=== PATIENT | female | born 1930 | race African-American/Black ===

== ENCOUNTER 2017-12-23 09:37 | Inpatient (IN) ==
[2017-12-23] MEDS ORDERED: Metoprolol Tartrate 25 MG Tablet PO SCH (10:30)
[2017-12-23] MEDS ORDERED: Chlorhexidine Gluconate 2% 1 Pack (2 Cloths) TOPICAL SCH (10:30)
[2017-12-23] MEDS ORDERED: Sodium Chlor 0.9% Inj 500 ML IV.SIG SCH (11:00)
[2017-12-23] MEDS ORDERED: Lidocaine PF 1% Inj 5 ML Syringe INFILTRATN ONE (12:00)
[2017-12-23] MEDS ORDERED: Glycopyrrolate Inj 1 MG/5 ML Syringe IV.PUSH ONE (12:00)
[2017-12-23] MEDS ORDERED: Neostigmine Inj 5 MG/5 ML Syringe IV.PUSH ONE (12:00)
[2017-12-23] MEDS ORDERED: Phenylephrine/NS 1000 MCG/10ML Syringe IV.PUSH ONE (12:00)
[2017-12-23] MEDS ORDERED: Lidocaine 1%/Epinephrine 1:100,000 Inj 20 ML Vial ONE (14:33)
[2017-12-23] MEDS ORDERED: Gelatin Size 100 Topical Foam ONE (14:34)
[2017-12-23] MEDS ORDERED: Thrombin Topical Soln 5,000 UNIT Vial TOPICAL ONE (14:34)
[2017-12-23] MEDS ORDERED: Bisacodyl 10 MG Supp RECTAL PRN (15:39)
[2017-12-23] MEDS ORDERED: Morphine Inj 4 MG/ML Vial ONE (17:56)
[2017-12-23] MEDS ORDERED: CROMOLYN 4% EACH EYE SCH (18:00)
[2017-12-23 19:07] LABS: Total Protein,CSF 37.6 mg/dL (15.0-45.0)
[2017-12-23 20:01] LABS: RBC on Tube 1 5360 /mm3
[2017-12-23 20:08] LABS: Lymphocytes, CSF 86 %; Neutrophils,CSF 14 %
--- NOTE | 2017-12-23 20:20 | CT ---
EXAM DATE: 12/23/2017 7:59 PM EDT AGE/SEX: 87 years / Female INDICATIONS: Post op; revision of INDUSTRIAL ECOLOGIST shunt. CLINICAL DATA: This is the patient's initial encounter. Patient reports that signs and symptoms have been present for 1 day and indicates a pain score of Nonresponsive. MEDICAL/SURGICAL HISTORY: Gastroesophageal reflux disease. Sickle Cell disease. Esophageal strictu re, Cerebral cyst Hysterectomy. RADIATION DOSE: 56.35 CTDI (mGy) COMPARISON: PCI, CT BRAIN W/O CONTRAST, 10/13/2017. . TECHNIQUE: CT of the head without contrast. Using automated exposure control and adjustment of the mA and/or kV according to patient size, radiation dose was kept as low as reasonably achievable to ob tain optimal diagnostic quality images. DICOM format image data is available electronically for revi ew and comparison. FINDINGS: Interval revision of ventriculoperitoneal shunt catheter. The catheter enters via a left frontal appr oach and now extends into the third ventricle. There is no hydrocephalus. There is new acute high den sity hemorrhage along the left frontal and parietal convexities and there is mild surrounding edema. Small amount gas is noted in the anterior left subdural space is well. There is no mass effect or mid line shift. The posterior fossa and brainstem are unremarkable. CONCLUSION: 1. New high density subarachnoid hemorrhage along the left frontal and parietal convexities adjacent to the ventriculoperitoneal shunt catheter. 2. The shunt catheter tip is in the third ventricle with no evidence of hydrocephalus. . Electronically signed by: Bg Lange MD 12/23/2017 8:18 PM EDT
[2017-12-23] MEDS ORDERED: Non-Formulary Drug (Omega 3-Dha-Epa-Fish Oil [Fish Oil] 1 CAP) PO SCH (21:00)
--- NOTE | 2017-12-23 21:21 | P.OP ---
- Preoperative Diagnosis (1) NPH (normal pressure hydrocephalus) - Postoperative Diagnosis (1) NPH (normal pressure hydrocephalus) Date of procedure: 12/23/17 Procedure: Revision of ventriculoperitoneal shunt Anesthesia: [facility] Surgeon: Marques Denton MD Fence Erector: Medina Trevino Pathology: other (CSF) Operation and Findings: INTRAOPERATIVE FINDINGS:~ Clear cerebrospinal fluid with an opening pressure of 120 mm of water. INDICATIONS FOR PROCEDURE: Ms Jeffries is a 87 year old female with history of normal pressure hydrocephalus who presented with progressive gait imbalance and short term memory loss. 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 Her condition was getting progressively worse. A lumbar drain and cerebrospinal fluid drainage resulted on significant improvement in her symptoms. A revision of the ventriculoperitoneal shunt was indicated The [id number] details of the procedure, its indications, alternatives, risks , and potential complications of the surgery were fully discussed with the patient and his family. They fully understood. All their questions were answered. No guarantees were given. They voiced requesting the surgery and signed informed consent.They were offered the alternative of continuing nonsurgical treatment. DETAILS OF THE SURGICAL PROCEDURE:~ After the induction of general anesthesia, endotracheal intubation was performed. A Rubin catheter, bilateral COLLEEN hose and sequential compression devices were placed and kept throughout the procedure. The patient was positioned supine on a 30-80 table with the head over a gel doughnut. All pressure points were carefully padded with eggcrate mattress. The left frontotemporal parietal area was shaved prepped and draped in the usual sterile fashion, as well as the neck, chest and abdomen. A small incision was made in the left frontal area adjacent to her shunt and a self-retaining retractor was placed in the incision. AThe ventricular catheter was disconnected from the valve and no CSF flow was obtained. Using a mannometer , flow through the valve was assessed and the valve was obstructed. The valve was then disconnected from the peritoneal catheter and flow through the peritoneal catether was assessed. An excellent flow was demoonstrated through the peritoneal catheter. A IntroFly programmable valve has calibrated at a pressure of 120 mmHg and flushed according to the granulator machine operator's instructions. The valve was secured to the proximal end of the peritoneal catheter using a 2-0 silk. Then, a ventricular catheter was advanced into the ventricular system. At a depth of 70mm a good flow of cerebrospinal fluid was obtained.~ The catheter was connected to the valve and the connection secured with a 2-0 silk. Cerebrospinal fluid was noted to drip through the distal end of the peritoneal catheter. The skin incision was closed using interrupted 3-0 Vicryl for the galea and sree to the skin. At the end of the procedure, the sponge, needle and instrument counts were all correct. The estimated blood was less than 50 cc. No blood transfusion was given. No intraoperative complications occurred. The patient received preoperative prophylactic antibiotics. The patient was then extubated and transferred to the recovery room in stable condition.
[2017-12-23] MEDS: Senna/Docusate Sodium 8.6/50 MG Tablet PO SCH (22:17)
[2017-12-23] MEDS: amLODIPine 5 MG Tablet PO SCH (22:17)
[2017-12-24] MEDS ORDERED: ceFAZolin 2 GM Premix Inj 2 GM/50 ML PIGGYBACK IV.SIG SCH
[2017-12-24] MEDS: ceFAZolin Inj 2,000 MG in Sodium Chlor 0.9% Inj 100 ML IV.SIG SCH ×3 (00:21→16:21)
[2017-12-24] MEDS: Ascorbic Acid 500 MG Tablet PO SCH (08:19)
[2017-12-24] MEDS: Senna/Docusate Sodium 8.6/50 MG Tablet PO SCH ×2 (08:20→20:53)
--- NOTE | 2017-12-24 09:13 | P.CONIM ---
History of Present Illness Requesting Physician: Marques Denton Reason for Consult: post operative medical management Primary Care Provider: Sharad Madrid Family Provider: Sharad Madrid History of Present Illness: This is an 87-year-old female patient with a past medical history which includes carotid artery stenosis, cerebellar cyst, chronic kidney disease stage III, degenerative disc disease, GERD, hypertension, sciatica, and normal pressure hydrocephalus. Patient is status post revision of FRENCH BINDING FOLDER shunt [address] Denton. We have been consulted for assistance with postoperative medical management. Patient resting in bed with family member at bedside. Patient only complaint at this time is sore throat. Patient denies fever, chills, N/V, SOB or chest pain. Past medical history carotid artery stenosis, cerebellar cyst, chronic kidney disease stage III, degenerative disc disease, GERD, hypertension, sciatica, and normal pressure hydrocephalus Past surgical history Arthroscopic right knee, percutaneous needle biopsy of the breast, FRENCH BINDING FOLDER shunt placement, cataract surgery, colonoscopy, diagnostic EGD, surgery on the elbow, neck surgery, neuroplastic decompression of medial nerve, tonsillectomy and adenoidectomy, vaginal hysterectomy and Social history Lives independently Denies EtOH use Denies tobacco use now in the past Family history Hypertension, arthritis, diabetes mellitus and heart disease Review of Systems All other systems reviewed negative except as stated in HPI PMFSH - History History Provided By: Patient - Medical History Medical History: Medical History (Last Reviewed 12/26/17 @ 07:38 by Kiesha Grider) Anxiety Cerebral cyst GERD (gastroesophageal reflux disease) History of esophageal stricture Hx of hysterectomy Hypertension Memory changes Numbness and tingling in both hands Numbness and tingling of both feet Right elbow pain Shoulder pain, bilateral Sickle cell anemia Urinary frequency Wears dentures Wears glasses - Surgical History Surgical History: Surgical History (Last Reviewed 12/26/17 @ 07:38 by Kiesha Grider) History of carpal tunnel surgery of left wrist History of carpal tunnel surgery of right wrist History of total bilateral knee replacement (TKR) Hx of breast biopsy Hx of cataract removal with insertion of prosthetic lens Hx of tonsillectomy Ventriculo-peritoneal shunt status - Tobacco History Second Hand Smoke Exposure: No Smoking Status: Never smoker - Alcohol History How Often Do You Have a Drink Containing Alcohol: Never - Substance Use History Substance History: No History of Abuse - Travel History Recent Travel in the [facility] Within the Last 8 Weeks: No Recent Travel Out of the Country Within the Last 8 Weeks: No Medications and Allergies Allergies Allergy/AdvReac Type Severity Reaction Status Date / Time albuterol Allergy Severe SEIZURES Verified 12/23/17 10:51 aspirin Allergy Severe STOMACH Verified 12/23/17 10:51 PAIN clarithromycin Allergy Unknown DO NOT Verified 12/23/17 10:51 RECALL fentanyl Allergy Unknown CANNOT Verified 12/23/17 10:51 RECALL prednisone Allergy Unknown does not Verified 12/23/17 11:52 recall Home Medications Medication Instructions Recorded Confirmed Type amlodipine 5 mg PO HS 12/22/17 12/23/17 History ascorbic acid (vitamin C) 250 mg PO DAILY 12/22/17 12/23/17 History cromolyn 1 drp OPHTHALMIC (EYE) QID 12/22/17 12/23/17 History ergocalciferol (vitamin D2) 1 cap PO WEEKLY 12/22/17 12/23/17 History [Vitamin D2] hydrochlorothiazide 12.5 mg PO DAILY 12/22/17 12/23/17 History omega 6-ebe-lpt-fish oil [Fish Oil] 1 cap PO BID 12/22/17 12/23/17 History calcium-mag oxide-vitamin D3 PO DAILY 12/23/17 History turmeric (bulk) [Curcumin] MISCELLANEOUS BID 12/23/17 History Active Medications: Active Medications Hydrocodone Bitart/Acetaminophen ([place] 10/325) 1 tab PO Q4H PRN PRN Reason: Pain Scale 1 To 5 Al Hydroxide/Mg Hydroxide (Milk Of Magnnoe Liq) 30 ml PO Q12H PRN PRN Reason: Mild Constipation Amlodipine Besylate (Norvasc) 5 mg PO [facility] Ascorbic Acid (Vitamin C) 250 mg PO DAILY [facility] Last Admin: 12/24/17 08:19 Dose: 250 mg Bisacodyl (Dulcolax Supp) 10 mg RECTAL DAILY PRN PRN Reason: SEVERE CONSITIPATION Chlorhexidine Gluconate (Chlorhexidine 2% Cloth) 3 pack TOPICAL INBOUND CUSTOMER SERVICE AGENT [facility] Stop: 12/26/17 10:25 Last Admin: 12/23/17 10:30 Dose: 3 pack Ergocalciferol (Vitamind2) 50,000 unit PO WEEKLY [facility] Hydrochlorothiazide (Microzide) 12.5 mg PO DAILY [facility] Last Admin: 12/24/17 08:20 Dose: 12.5 mg Lactated Ringer's (Lr 1000 Ml Inj) 1,000 mls @ 30 mls/hr IV.SIG .Q24H [facility] Stop: 12/26/17 10:25 Last Admin: 12/23/17 11:00 Dose: 30 mls/hr Sodium Chloride (Ns Inj) 500 mls @ 30 mls/hr IV.SIG .Q10H [facility] Stop: 12/26/17 10:25 Cefazolin Sodium 2,000 mg/ (Sodium Chloride) 120 mls @ 240 mls/hr IV.SIG INBOUND CUSTOMER SERVICE AGENT [facility] Stop: 12/26/17 10:59 Potassium Chloride/Sodium Chloride (Ns + Kcl 20 Meq Inj) 1,000 mls @ 100 mls/ hr IV.CONT .Q10H [facility] Last Admin: 12/24/17 01:12 Dose: 100 mls/hr Cefazolin Sodium 2,000 mg/ (Sodium Chloride) 120 mls @ 240 mls/hr IV.SIG Q8H [facility] Stop: 12/24/17 16:29 Last Admin: 12/24/17 08:20 Dose: 240 mls/hr Lactulose (Lactulose Liq) 30 ml PO DAILY PRN PRN Reason: SEVERE CONSITIPATION Metoprolol Tartrate (Lopressor) 25 mg PO INBOUND CUSTOMER SERVICE AGENT [facility] Stop: 12/26/17 10:25 Last Admin: 12/23/17 11:22 Dose: Not Given Miscellaneous Information ([facility]) 1 each OTHER UNSCH PRN PRN Reason: SEE LABEL COMMENTS Stop: 12/24/17 19:27 Patient Own Medication - ( Cromolyn [Cromolyn] 4% Opth. Soln.) 1 each EACH EYE QID [facility] Povidone Iodine (Betadine 5% Antisepsis Kit) 1 applicatio EACH NARE INBOUND CUSTOMER SERVICE AGENT [facility] Stop: 12/26/17 10:25 Last Admin: 12/23/17 11:22 Dose: Not Given Senna/Docusate Sodium (Ijeoma-Colace) 1 tab PO BID [facility] Last Admin: 12/24/17 08:20 Dose: 1 tab Sennosides (Senokot) 17.2 mg PO Q12H PRN PRN Reason: Moderate Constipation Exam Vital signs: Vital Signs 12/23/17 11:11 12/23/17 17:43 08/17/18 18:00 Temperature 98.1 F 96.7 F L Pulse Rate 68 62 62 Respiratory Rate 20 20 20 Blood Pressure 151/76 H 135/64 129/68 Pulse Oximetry 97 97 12/23/17 18:15 12/23/17 18:20 12/23/17 18:30 Temperature Pulse Rate 55 L 56 L Respiratory Rate 16 16 16 Blood Pressure 137/64 151/70 H Pulse Oximetry 100 94 L 12/23/17 18:45 12/23/17 19:00 12/23/17 19:15 Temperature Pulse Rate 56 L 55 L 54 L Respiratory Rate 16 17 16 Blood Pressure 152/73 H 151/78 H 164/74 H Pulse Oximetry 95 97 97 12/23/17 19:30 12/23/17 19:45 12/23/17 20:00 Temperature Pulse Rate 52 L 54 L 66 Respiratory Rate 16 20 23 Blood Pressure 153/82 H 154/79 H 173/81 H Pulse Oximetry 98 96 100 12/23/17 20:15 12/23/17 20:30 12/23/17 20:45 Temperature Pulse Rate 58 L 56 L 57 L Respiratory Rate 17 16 15 Blood Pressure 169/77 H 151/62 H 149/71 H Pulse Oximetry 97 97 97 12/23/17 21:00 12/24/17 00:00 12/24/17 04:00 Temperature 97.6 F 98.7 F 98.7 F Pulse Rate 57 L 62 62 Respiratory Rate 15 16 16 Blood Pressure 137/66 179/77 H 167/72 H Pulse Oximetry 98 98 98 12/24/17 08:00 12/24/17 08:52 Temperature 98.3 F Pulse Rate 81 Respiratory Rate 19 Blood Pressure 160/76 H Pulse Oximetry 95 96 Intake & Output 12/23/17 12/24/17 12/24/17 18:59 06:59 18:59 Intake Total 1000 / 1000 1370 / 1370 Output Total 20 / 20 3670 / 3670 Balance 980 / 980 -2300 / -2300 Weight 66 kg 67 kg Intake: IV 1120 / 1120 NS + KCl 20 mEq Inj 1,000 ML @ 1000 / 1000 100 mls/hr IV.CONT .Q10H [facility] Rx #:[id number] Ancef Inj 2,000 MG In NS Inj 120 / 120 100 ML @ 240 mls/hr IV.SIG Q8H [facility] Rx#:[id number] Oral 50 / 50 Anesthesia Amount 1000 / 1000 200 / 200 Output: Estimated Blood Loss / 20 20 / Urine Amount (Catheter) 3649 Indwelling Urethral Catheter 3649 Other: # Voids 1 1 Weight On Admission 66 kg Narrative: GENERAL: This is an elderly 87-year-old female patient with dressing present on head CDI, in no apparent distress. CARDIOVASCULAR: Regular rate and rhythm RESPIRATORY: Clear to auscultation. Breath sounds equal bilaterally. GASTROINTESTINAL: Abdomen soft, non-tender, nondistended. Normal active bowel sounds MUSCULOSKELETAL: Extremities without clubbing, cyanosis, or edema. NEURO: Alert & Oriented x4 to person, place, time, situation. Moves all ext x4 Results - Labs CBC & Chem 7: 12/25/17 04:20 12/25/17 04:20 Labs: Laboratory Results - last 24 hr 12/23/17 12/23/17 12/23/17 10:57 17:00 17:00 CSF Volume (1) 3.5 CSF Supernat Color (1) Clear CSF Gross Blood (1) 1+ A CSF WBC (1) 5 CSF RBC (1) 5360 H CSF Neutrophils % 14 CSF Lymphocytes % 86 CSF Glucose 50 CSF Total Protein 37.6 Nasal Screen MRSA (PCR) Negative Staph aureus (PCR) Negative - Imaging Impressions Head CT 12/23/17 00:00 CONCLUSION: 1. New high density subarachnoid hemorrhage along the left frontal and parietal convexities adjacent to the ventriculoperitoneal shunt catheter. 2. The shunt catheter tip is in the third ventricle with no evidence of hydrocephalus. . Assessment and Plan - Assessment (1) NPH (normal pressure hydrocephalus) Code(s): G91.2 - (Idiopathic) normal pressure hydrocephalus Status: Acute Plan: This is an 87-year-old female patient with a past medical history which includes carotid artery stenosis, chronic kidney disease stage III, degenerative disc disease, GERD, hypertension, sciatica, and normal pressure hydrocephalus. Patient is status post revision of FRENCH BINDING FOLDER shunt on 12/23/[address] Denton. We have been consulted for assistance with postoperative medical management. Normal pressure hydrocephalus status post revision of FRENCH BINDING FOLDER shunt on 12/23/[address] Denton. Hypertension Continue patient's home amlodipine 5 mg p.o. nightly and hydrochlorothiazide 12.5 mg p.o. daily add Vasotec as needed Sore throat Chloraseptic lozenges as needed DVT prophylaxis per surgery - Attending Attestation Patient examined. Assessment and plan formulated with Irma Willis PA-C. I agree with the above.
--- NOTE | 2017-12-24 15:47 | P.PNNS ---
Subjective Interval history: patient without any issues Physical Exam Vital signs: Vital Signs 12/23/17 17:43 12/23/17 18:00 12/23/17 18:15 Temperature 96.7 F L Pulse Rate 62 62 55 L Respiratory Rate 20 20 16 Blood Pressure 135/64 129/68 137/64 Pulse Oximetry 97 100 12/23/17 18:20 12/23/17 18:30 12/23/17 18:45 Temperature Pulse Rate 56 L 56 L Respiratory Rate 16 16 16 Blood Pressure 151/70 H 152/73 H Pulse Oximetry 94 L 95 12/23/17 19:00 12/23/17 19:15 12/23/17 19:30 Temperature Pulse Rate 55 L 54 L 52 L Respiratory Rate 17 16 16 Blood Pressure 151/78 H 164/74 H 153/82 H Pulse Oximetry 97 97 98 12/23/17 19:45 12/23/17 20:00 12/23/17 20:15 Temperature Pulse Rate 54 L 66 58 L Respiratory Rate 20 23 17 Blood Pressure 154/79 H 173/81 H 169/77 H Pulse Oximetry 96 100 97 12/23/17 20:30 12/23/17 20:45 12/23/17 21:00 Temperature 97.6 F Pulse Rate 56 L 57 L 57 L Respiratory Rate 16 15 15 Blood Pressure 151/62 H 149/71 H 137/66 Pulse Oximetry 97 97 98 12/24/17 00:00 12/24/17 04:00 12/24/17 08:00 Temperature 98.7 F 98.7 F 98.3 F Pulse Rate 62 62 81 Respiratory Rate 16 16 19 Blood Pressure 179/77 H 167/72 H 160/76 H Pulse Oximetry 98 98 95 12/24/17 08:52 12/24/17 12:00 Temperature 98.5 F Pulse Rate Respiratory Rate 24 Blood Pressure 151/67 H Pulse Oximetry 96 94 L Intake & Output 12/23/17 12/24/17 12/24/17 18:59 06:59 18:59 Intake Total 1000 / 1000 1370 / 1370 1120 / 1120 Output Total 20 / 20 3670 / 3670 Balance 980 / 980 -2300 / -2300 1120 / 1120 Weight 66 kg 67 kg Intake: IV 1120 / 1120 1120 / 1120 NS + KCl 20 mEq Inj 1,000 ML @ 1000 / 1000 1000 / 1000 100 mls/hr IV.CONT .Q10H [facility] Rx #:[id number] Ancef Inj 2,000 MG In NS Inj 120 / 120 120 / 120 100 ML @ 240 mls/hr IV.SIG Q8H [facility] Rx#:[id number] Oral 50 / 50 Anesthesia Amount 1000 / 1000 200 / 200 Output: Estimated Blood Loss 20 / 20 20 / 20 Urine Amount (Catheter) 3650 / 3650 Indwelling Urethral Catheter 3650 / 3650 Other: # Voids 1 1 Weight On Admission 66 kg Narrative: E3, awakens easily from sleep Aox self, hospital mild confusion (baseline) follows simple commands symmetric - Urinary Catheter Management Indwelling Urethral Catheter Cath placed during this visit: yes Reason for continuing: Hourly intake/output Insertion date: 12/23/17 Insertion time: 16:30 Assessment and Plan - Plan 87 yo POD 1 s/p MACHINE JOINT CUTTER shunt for NPH -transfer to floor -normalize: dc sheets, ok to be OOB with assistance -recommend PT evaluation for discharge needs -DC home tomorrow versus SNF placement pending PT evaluation
[2017-12-24] MEDS: amLODIPine 5 MG Tablet PO SCH (20:53)
[2017-12-24] MEDS: Acetaminophen 325 MG Tablet PO PRN (20:53)
[2017-12-25] MEDS: Acetaminophen 325 MG Tablet PO PRN ×4 (03:44→20:12)
[2017-12-25 05:22] LABS: Baso % (Auto) 0.4 % (0.0-2.0); Eos # (Auto) 0.1 th/mm3 (0.0-0.4); Eos % (Auto) 0.6 % (0.0-4.0); Hematocrit 43.7 % (35.0-46.0); Hemoglobin 14.6 gm/dL (11.6-15.3); Lymph % (Auto) 21.8 % (9.0-44.0); Mean Corpuscular HGB Conc 33.4 % (32.0-36.0); Mean Corpuscular Hemoglobin 29.4 pg (27.0-34.0); Mean Corpuscular Volume 88.3 fL (80.0-100.0); Mean Platelet Volume 10.3 fL (7.0-11.0); Mono # (Auto) 1.2 th/mm3 (0.0-0.9); Mono % (Auto) 13.2 % (0.0-8.0); Neut # (Auto) 5.7 th/mm3 (1.8-7.7); Platelet Count 193 th/mm3 (150-450); Red Blood Count 4.95 mil/mm3 (4.00-5.30); White Blood Count 8.9 th/mm3 (4.0-11.0)
[2017-12-25 05:46] LABS: Calcium 8.7 mg/dL (8.5-10.1); Carbon Dioxide 28.1 meq/L (21.0-32.0); Potassium 3.5 meq/L (3.5-5.1)
[2017-12-25] MEDS: Ascorbic Acid 500 MG Tablet PO SCH (08:40)
[2017-12-25] MEDS: Senna/Docusate Sodium 8.6/50 MG Tablet PO SCH ×2 (08:40→20:11)
--- NOTE | 2017-12-25 14:30 | P.PNNS ---
Subjective Interval history: patient without any issues Physical Exam Vital signs: Vital Signs 12/24/17 16:00 12/24/17 20:00 12/25/17 00:00 Temperature 98.7 F 98.1 F 98.2 F Pulse Rate 69 66 63 Respiratory Rate 26 H 21 20 Blood Pressure 144/64 H 138/63 121/60 Pulse Oximetry 96 97 96 12/25/17 04:00 12/25/17 08:00 12/25/17 12:00 Temperature 97.8 F 97.8 F 97.8 F Pulse Rate 60 55 L 63 Respiratory Rate 20 20 21 Blood Pressure 182/81 H 125/61 115/59 L Pulse Oximetry 99 94 L 91 L Intake & Output 12/24/17 12/25/17 12/25/17 18:59 06:59 18:59 Intake Total 2040 / 2040 240 / 240 Output Total 1800 / 1800 250 / 250 Balance 240 / 240 -10 / -10 Weight 67.8 kg Intake: IV 1640 / 1640 NS + KCl 20 mEq Inj 1,000 ML @ 1400 / 1400 100 mls/hr IV.CONT .Q10H [facility] Rx #:[id number] Ancef Inj 2,000 MG In NS Inj 240 / 240 100 ML @ 240 mls/hr IV.SIG Q8H [facility] Rx#:[id number] Oral 400 / 400 240 / 240 Output: Urine 250 / 250 Urine Amount (Catheter) 1800 / 1800 Indwelling Urethral Catheter 1800 / 1800 Narrative: E4,bright Aox self, hospital mild confusion (baseline) follows simple commands symmetric incision: sree, clean/dry/intact - Urinary Catheter Management Indwelling Urethral Catheter Cath placed during this visit: yes, but has since been removed by the nurse Reason for continuing: Decision to DC catheter Insertion date: 12/23/17 Insertion time: 16:30 Removal date: 12/24/17 Removal time: 18:15 Assessment and Plan - Plan 87 yo POD 2 s/p INDUSTRIAL DESIGN INTERN shunt revision -ok to be OOB -regular diet -physical therapy recommendations -likely inpatient rehab versus SNF placement (ready for discharge pending placement)
[2017-12-25] MEDS: amLODIPine 5 MG Tablet PO SCH (20:11)
[2017-12-26] MEDS: Ascorbic Acid 500 MG Tablet PO SCH (08:03)
[2017-12-26] MEDS: Senna/Docusate Sodium 8.6/50 MG Tablet PO SCH (08:03)
--- NOTE | 2017-12-26 10:57 | P.DS ---
<Marques Denton - Last Filed: 12/28/17 12:22> Date of admission: 12/23/17 09:37 Primary care physician: Sharad Madrid DS: Summary - Time Spent with Patient Total time spent providing and/or coordinating discharge services: Results - Impressions ITS Impressions Head CT 12/23/17 00:00 CONCLUSION: 1. New high density subarachnoid hemorrhage along the left frontal and parietal convexities adjacent to the ventriculoperitoneal shunt catheter. 2. The shunt catheter tip is in the third ventricle with no evidence of hydrocephalus. . <ElliottJhoana - Last Filed: 12/28/17 17:01> Date of admission: 12/23/17 09:37 Primary care physician: Sharad Madrid Brief History from admission: Ms Jeffries is a 87 year old female with history of normal pressure hydrocephalus who presented with progressive gait imbalance and short term memory loss. 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 Her condition was getting progressively worse. A lumbar drain and cerebrospinal fluid drainage resulted on significant improvement in her symptoms. A revision of the ventriculoperitoneal shunt was indicated DS: Summary Hospital Course: Ms. Jeffries underwent revision of ventriculoperitoneal shunt on 12/23/17. She was discharged to SNF in stable conditions. - Time Spent with Patient Total time spent providing and/or coordinating discharge services: Less than 30 minutes Exam Vital signs: Vital Signs 12/25/17 12:00 12/25/17 16:00 12/25/17 20:00 Temperature 97.8 F 97.8 F 98.3 F Pulse Rate 63 56 L 66 Respiratory Rate 21 24 23 Blood Pressure 115/59 L 142/66 H 145/76 H Pulse Oximetry 91 L 93 L 95 12/26/17 00:00 12/26/17 04:00 12/26/17 08:00 Temperature 98.0 F 98.2 F 98.2 F Pulse Rate 62 64 67 Respiratory Rate 20 20 27 H Blood Pressure 119/56 L 155/72 H 145/70 H Pulse Oximetry 92 L 92 L 97 Intake & Output 12/25/17 12/26/17 12/26/17 18:59 06:59 18:59 Intake Total 750 / 750 240 / 240 Output Total 500 / 500 700 / 700 Balance 250 / 250 -460 / -460 Weight 68.5 kg Intake: Oral 750 / 750 240 / 240 Output: Urine 500 / 500 700 / 700 Other: # Voids 2 Results Procedures completed during hospitalization: Revision of ventriculoperitoneal shunt 12/23/17 - Impressions ITS Impressions Head CT 12/23/17 00:00 CONCLUSION: 1. New high density subarachnoid hemorrhage along the left frontal and parietal convexities adjacent to the ventriculoperitoneal shunt catheter. 2. The shunt catheter tip is in the third ventricle with no evidence of hydrocephalus. . Discharge Plan - Discharge Order Discharge Orders: Discharge Order (Routine); Ordered 12/26/17 Ordered By: Jhoana Gallagher - Physicians Team Primary Care Provider: Sharad Madrid Attending Provider: Marques Denton Other Providers: Emanuel Telles DO ; Pat Glass - Rxs /Orders / Referrals /Forms Prescriptions: Continue amlodipine 5 mg Tablet 5 mg PO HS ascorbic acid (vitamin C) 250 mg Tablet 250 mg PO DAILY calcium-mag oxide-vitamin D3 PO DAILY cromolyn 4 % Drops 1 drp OPHTHALMIC (EYE) QID ergocalciferol (vitamin D2) [Vitamin D2] 50,000 unit Capsule 1 cap PO WEEKLY hydrochlorothiazide 12.5 mg Tablet 12.5 mg PO DAILY omega 6-zon-mie-fish oil [Fish Oil] 1,000 mg (120 mg-180 mg) Capsule 1 cap PO BID turmeric (bulk) [Curcumin] 95 % Powder miscellaneous BID Referrals: Sharad Madrid MD [Primary Care Provider] - See Instructions Pat Glass [Agency] - See Instructions - Discharge Instructions Patient Printed Instructions: Hydrocephalus (DC), Ventriculoperitoneal Shunt Placement for Hydrocephalus in Adults (DC)
== END 2017-12-26 14:10 ==
LOC: HSDI 09:37 → N03 21:46
PROVIDERS: ADMIT Neurological Surgery; ATTEND Neurological Surgery

== ENCOUNTER 2018-01-23 21:25 | Inpatient (IN) ==
--- NOTE | 2018-01-23 22:16 | ED ---
HPI General Chief complaint: Neuro Symptoms/Deficit Stated complaint: Medical Time Seen by Provider: 01/23/18 21:32 History of Present Illness HPI narrative: Patient is an 87-year-old female presents emergency department for evaluation of altered mental status. Patient was a transfer accepted by Dr. Denton. Has a history of a shunt revision recently for reasons unknown. Patient was seen at outside facility had CAT scan that showed that she had abnormal fluid level density in the left parietal lobe consistent with either a CSF-patel or ischemia. Patient is alert and awake and oriented on arrival she is having some difficulty finding words and cannot tell me who did her surgery(it was in fact Dr. Denton) when it was or for what reason. This limits her history somewhat peer Related Data Home Medications Medication Instructions Recorded Confirmed amlodipine 5 mg PO HS 12/22/17 12/23/17 ascorbic acid (vitamin C) 250 mg PO DAILY 12/22/17 12/23/17 cromolyn 1 drp OPHTHALMIC (EYE) QID 12/22/17 12/23/17 ergocalciferol (vitamin D2) 1 cap PO WEEKLY 12/22/17 12/23/17 [Vitamin D2] hydrochlorothiazide 12.5 mg PO DAILY 12/22/17 12/23/17 omega [id number]-fish oil [Fish Oil] 1 cap PO BID 12/22/17 12/23/17 calcium-mag oxide-vitamin D3 PO DAILY 12/23/17 turmeric (bulk) [Curcumin] MISCELLANEOUS BID 12/23/17 Allergies Allergy/AdvReac Type Severity Reaction Status Date / Time albuterol Allergy Severe SEIZURES Verified 12/23/17 10:51 aspirin Allergy Severe STOMACH Verified 12/23/17 10:51 PAIN clarithromycin Allergy Unknown DO NOT Verified 12/23/17 10:51 RECALL fentanyl Allergy Unknown CANNOT Verified 12/23/17 10:51 RECALL prednisone Allergy Unknown does not Verified 12/23/17 11:52 recall Review of Systems ROS: all other systems reviewed are negative PMFSH Social History Social History Substance History: No History of Abuse Second Hand Smoke Exposure: No Smoking Status: Never smoker How Often Do You Have a Drink Containing Alcohol: Never Recent Travel in [facility] within the Last 8 Weeks: No Recent Out of Country Travel within the Last 8 Weeks: No Exam Narrative Exam Narrative: GENERAL: Well-developed well-nourished, no obvious distress, appears younger than stated age. SKIN: Focused skin assessment warm/dry. HEAD: Atraumatic. Normocephalic. EYES: Pupils equal and round. No scleral icterus. No injection or drainage. ENT: No nasal bleeding or discharge. Mucous membranes pink and moist. NECK: Trachea midline. No JVD. CARDIOVASCULAR: Regular rate and rhythm. No murmur appreciated. RESPIRATORY: No accessory muscle use. Clear to auscultation. Breath sounds equal bilaterally. GASTROINTESTINAL: Abdomen soft, non-tender, nondistended. Hepatic and splenic margins not palpable. MUSCULOSKELETAL: No obvious deformities. No clubbing. No cyanosis. No edema. NEUROLOGICAL: Awake and alert. No obvious cranial nerve deficits. Motor grossly within normal limits. Normal speech. Patient is having some difficulty finding words, otherwise 5 out of 5 strength in all 4 extremities, cranial nerves II through XII grossly intact and nonfocal. PSYCHIATRIC: Appropriate mood and affect; insight and judgment normal. Course Initial Documented Vital Signs Temperature 97.8 F 01/23/18 21:31 Pulse Rate 64 01/23/18 21:31 Respiratory Rate 14 01/23/18 21:31 Blood Pressure 182/85 H 01/23/18 21:31 Pulse Oximetry 95 01/23/18 21:31 Last Documented Vital Signs Temperature 97.8 F 01/23/18 21:37 Pulse Rate 65 01/23/18 23:29 Respiratory Rate 22 01/23/18 23:29 Blood Pressure 155/84 H 01/23/18 23:29 Pulse Oximetry 95 01/23/18 23:29 Medical Decision Making MDM Narrative Medical decision making narrative: Patient was roomed in the emergency department, discussed with Dr. Denton who would like to get an MRI to differentiate between the 2 leading diagnoses listed above. Patient is alert and awake and oriented protecting her own airway. He requested the patient be admitted to [facility]. Patient discussed with Dr. Zaman who is agreeable. Patient did not receive any medications prior to transfer, none were recommended by Dr. Denton nor myself. Patient stable. Did review the CT scan from outside facility did show some hypodense lesion in the left parietal lobe. Basic labs were sent at outside facility were also included reviewed by me briefly and did not show any significant abnormality. Shunt series was also reviewed and showed no kink or disruption of the shunt tubing. Medical Screen Exam Complete: Yes Emergency Medical Condition: Yes Differential Diagnosis Differential Diagnosis: Stroke, CSF leak, shunt malfunction. Discharge Plan Discharge Disposition Patient Disposition: 30 Still Patient Discharge Details Diagnosis: Brain lesion Physicians Team ED Provider: Royer Gupta Primary Care Provider: Sharad Madrid Attending Provider: Bobo Zaman Other Providers: Marques Denton Discharge Interventions Interventions: Vital Signs Last Done: 01/23/18 23:29 Status ED Status: Admitted Patient
[2018-01-24] MEDS ORDERED: Bisacodyl 10 MG Supp RECTAL PRN (00:10)
[2018-01-24] MEDS ORDERED: Acetaminophen 325 MG Tablet PO PRN (00:10)
[2018-01-24] MEDS: Heparin - SQ 10,000 UNITS/ML Vial SQ SCH ×2 (00:49→08:28)
[2018-01-24 00:57] LABS: Baso % (Auto) 0.3 % (0.0-2.0); Eos # (Auto) 0.3 th/mm3 (0.0-0.4); Eos % (Auto) 5.9 % (0.0-4.0); Hematocrit 42.7 % (35.0-46.0); Lymph # (Auto) 2.5 th/mm3 (1.0-4.8); Lymph % (Auto) 51.6 % (9.0-44.0); Mean Corpuscular HGB Conc 32.8 % (32.0-36.0); Mean Corpuscular Hemoglobin 28.8 pg (27.0-34.0); Mean Corpuscular Volume 87.8 fL (80.0-100.0); Mean Platelet Volume 9.8 fL (7.0-11.0); Mono # (Auto) 0.4 th/mm3 (0.0-0.9); Neut # (Auto) 1.6 th/mm3 (1.8-7.7); Neut % (Auto) 33.2 % (16.0-70.0); Platelet Count 184 th/mm3 (150-450); Red Blood Count 4.86 mil/mm3 (4.00-5.30); Red Cell Distribution Width 14.2 % (11.6-17.2); White Blood Count 4.8 th/mm3 (4.0-11.0)
[2018-01-24 01:06] LABS: Activated Partial Thrombo Time 27.1 sec (24.3-30.1); INR 1.1 Ratio
[2018-01-24 01:17] LABS: Phosphorus 3.3 mg/dL (2.5-4.9)
[2018-01-24 01:22] LABS: Magnesium 2.4 mg/dL (1.5-2.5)
[2018-01-24] MEDS: Sod Chloride 0.9% Inj 1,000 ML IV.CONT SCH ×2 (01:45→18:13)
[2018-01-24] MEDS: Chlorhexidine Gluconate 2% 1 Pack (2 Cloths) TOPICAL SCH (03:35)
[2018-01-24] MEDS ORDERED: Chlorhexidine Gluconate 2% 1 Pack (2 Cloths) TOPICAL PRN (04:00)
[2018-01-24] MEDS ORDERED: Non-Formulary Drug (Omega 3-Dha-Epa-Fish Oil [Fish Oil] 1 CAP) PO SCH (09:00)
[2018-01-24] MEDS ORDERED: CROMOLYN 4% EACH EYE SCH (09:00)
[2018-01-24] MEDS ORDERED: CROMOLYN EACH EYE SCH (09:00)
[2018-01-24] MEDS ORDERED: Non-Formulary Drug (Hydrochlorothiazide [Hydrochlorothiazide] 12.5 MG) PO SCH (09:00)
[2018-01-24] MEDS ORDERED: ASCORBIC ACID 250 MG PO SCH (09:00)
[2018-01-24] MEDS: Senna/Docusate Sodium 8.6/50 MG Tablet PO SCH ×2 (09:23→21:17)
[2018-01-24] MEDS ORDERED: Gadobutrol PF 7.5 MMOL/7.5 ML Vial (for RAD) IV.SIG ONE (10:30)
[2018-01-24] MEDS: Ascorbic Acid 500 MG Tablet PO SCH (12:23)
[2018-01-24] MEDS: Famotidine PF Inj 20 MG/2 ML Vial IV.PUSH SCH ×2 (12:23→21:18)
[2018-01-24] MEDS: amLODIPine 5 MG Tablet PO SCH (21:18)
[2018-01-25] MEDS: Chlorhexidine Gluconate 2% 1 Pack (2 Cloths) TOPICAL SCH (04:12)
[2018-01-25 04:31] LABS: Hemoglobin 14.4 gm/dL (11.6-15.3); Mean Corpuscular HGB Conc 33.5 % (32.0-36.0); Mean Corpuscular Hemoglobin 29.8 pg (27.0-34.0); Mean Corpuscular Volume 88.9 fL (80.0-100.0); Platelet Count 179 th/mm3 (150-450); Red Blood Count 4.84 mil/mm3 (4.00-5.30); Red Cell Distribution Width 14.2 % (11.6-17.2); White Blood Count 5.5 th/mm3 (4.0-11.0)
[2018-01-25 04:50] LABS: Alanine Aminotransferase 16 U/L (10-53); Anion Gap 6 meq/L (5-15); Aspartate Aminotransferase 18 U/L (15-37); Blood Urea Nitrogen 16 mg/dL (7-18); Calcium 8.7 mg/dL (8.5-10.1); Carbon Dioxide 28.8 meq/L (21.0-32.0); Chloride 109 meq/L (98-107); Glomerular Filtration Rate 58 mL/min (>89); Glucose,Random 83 mg/dL (74-106); Magnesium 2.2 mg/dL (1.5-2.5); Potassium 3.7 meq/L (3.5-5.1); Sodium 144 meq/L (136-145)
[2018-01-25 04:52] LABS: Alkaline Phosphatase 85 U/L (45-117); Total Protein 6.7 g/dL (6.4-8.2)
[2018-01-25] MEDS: Sod Chloride 0.9% Inj 1,000 ML IV.CONT SCH ×2 (05:41→18:47)
[2018-01-25] MEDS: Famotidine PF Inj 20 MG/2 ML Vial IV.PUSH SCH ×2 (09:50→20:21)
[2018-01-25] MEDS: Senna/Docusate Sodium 8.6/50 MG Tablet PO SCH ×2 (09:50→20:21)
[2018-01-25] MEDS: Ascorbic Acid 500 MG Tablet PO SCH (09:50)
[2018-01-25] MEDS: amLODIPine 5 MG Tablet PO SCH (20:21)
[2018-01-26] MEDS: Chlorhexidine Gluconate 2% 1 Pack (2 Cloths) TOPICAL SCH (03:10)
[2018-01-26] MEDS: Senna/Docusate Sodium 8.6/50 MG Tablet PO SCH ×2 (08:11→20:37)
[2018-01-26] MEDS: Famotidine PF Inj 20 MG/2 ML Vial IV.PUSH SCH ×2 (08:11→20:37)
[2018-01-26] MEDS: Ascorbic Acid 500 MG Tablet PO SCH (08:11)
[2018-01-26] MEDS: amLODIPine 5 MG Tablet PO SCH (20:37)
[2018-01-27] MEDS: Chlorhexidine Gluconate 2% 1 Pack (2 Cloths) TOPICAL SCH (03:40)
[2018-01-27 05:10] LABS: Hematocrit 47.5 % (35.0-46.0); Hemoglobin 15.9 gm/dL (11.6-15.3); Mean Corpuscular HGB Conc 33.4 % (32.0-36.0); Mean Corpuscular Hemoglobin 29.2 pg (27.0-34.0); Mean Corpuscular Volume 87.3 fL (80.0-100.0); Mean Platelet Volume 10.5 fL (7.0-11.0); Platelet Count 202 th/mm3 (150-450); Red Blood Count 5.44 mil/mm3 (4.00-5.30); Red Cell Distribution Width 14.5 % (11.6-17.2); White Blood Count 7.4 th/mm3 (4.0-11.0)
[2018-01-27 05:16] LABS: Prothrombin Time 10.5 sec (9.8-11.6)
[2018-01-27 05:20] LABS: Albumin 3.5 g/dL (3.4-5.0); Anion Gap 11 meq/L (5-15); Aspartate Aminotransferase 19 U/L (15-37); Calcium 8.9 mg/dL (8.5-10.1); Carbon Dioxide 27.4 meq/L (21.0-32.0); Chloride 105 meq/L (98-107); Glomerular Filtration Rate 49 mL/min (>89); Glucose,Random 81 mg/dL (74-106); Magnesium 2.1 mg/dL (1.5-2.5); Potassium 3.5 meq/L (3.5-5.1); Sodium 143 meq/L (136-145)
[2018-01-27 05:22] LABS: Alanine Aminotransferase 16 U/L (10-53); Blood Urea Nitrogen 18 mg/dL (7-18)
[2018-01-27 05:24] LABS: Alkaline Phosphatase 94 U/L (45-117); Total Protein 7.5 g/dL (6.4-8.2)
[2018-01-27] MEDS ORDERED: ceFAZolin 2 GM Premix Inj 2 GM/50 ML PIGGYBACK IV.SIG PRN (06:00)
[2018-01-27] MEDS: Famotidine PF Inj 20 MG/2 ML Vial IV.PUSH SCH (08:10)
[2018-01-27] MEDS: Senna/Docusate Sodium 8.6/50 MG Tablet PO SCH ×3 (08:10→20:50)
[2018-01-27] MEDS: Ascorbic Acid 500 MG Tablet PO SCH (08:10)
[2018-01-27] MEDS ORDERED: Lidocaine 1%/Epinephrine 1:100,000 Inj 20 ML Vial ONE (14:24)
[2018-01-27] MEDS ORDERED: Thrombin Topical Soln 5,000 UNIT Vial TOPICAL ONE (14:25)
[2018-01-27] MEDS ORDERED: Gelatin Size 100 Topical Foam ONE (14:25)
[2018-01-27] MEDS ORDERED: Bacitracin Opth Oint 3.5 GM Tube ONE (14:25)
[2018-01-27] MEDS ORDERED: Morphine Sulfate Inj 2 MG/ML Vial ONE (14:29)
[2018-01-27] MEDS ORDERED: HYDROmorphone PF Inj 2 MG/ML Vial ONE (14:30)
[2018-01-27] MEDS ORDERED: Artificial Tears Opth Oint 3.5 GM Tube ONE (14:36)
[2018-01-27] MEDS ORDERED: Glycopyrrolate Inj 1 MG/5 ML Syringe IV.PUSH ONE (14:45)
[2018-01-27] MEDS ORDERED: Lidocaine PF 1% Inj 5 ML Syringe OTHER ONE (14:45)
[2018-01-27] MEDS ORDERED: Neostigmine Inj 5 MG/5 ML Syringe IV.PUSH ONE (14:45)
[2018-01-27] MEDS ORDERED: Phenylephrine/NS 1000 MCG/10ML Syringe IV.PUSH ONE (14:45)
[2018-01-27] MEDS ORDERED: Bisacodyl 10 MG Supp RECTAL PRN (15:21)
[2018-01-27] MEDS ORDERED: Sugammadex Inj 200 MG/2 ML Vial IV.PUSH ONE (15:57)
[2018-01-27] MEDS: Sod Chloride 0.9% Inj 1,000 ML IV.CONT SCH ×2 (17:29→20:45)
[2018-01-27] MEDS ORDERED: Morphine Inj 4 MG/ML Vial ONE (17:43)
[2018-01-27] MEDS: levETIRAcetam 500 MG Tablet PO SCH (20:49)
[2018-01-27] MEDS: amLODIPine 5 MG Tablet PO SCH (22:46)
[2018-01-27] MEDS: ceFAZolin 2 GM Premix Inj 2 GM/100 ML BAG IV.SIG SCH (22:47)
--- NOTE | 2018-01-28 00:55 | ECG ---
Date Performed: 01/27/2018 Time Performed: 07:57:04 PTAGE: 87 years EKG: Sinus rhythm . Poor R wave progression - probable normal variant Borderline ECG PREVIOUS TRACING : 01/19/2018 05.06 Since the previous tracing, no significant change noted DOCTOR: Bharat Murphy Interpretating Date/Time 01/28/2018 00:54:00
[2018-01-28] MEDS: Chlorhexidine Gluconate 2% 1 Pack (2 Cloths) TOPICAL SCH (03:24)
[2018-01-28 04:39] LABS: Hematocrit 43.4 % (35.0-46.0); Hemoglobin 14.4 gm/dL (11.6-15.3); Mean Corpuscular HGB Conc 33.1 % (32.0-36.0); Mean Corpuscular Hemoglobin 29.1 pg (27.0-34.0); Mean Corpuscular Volume 88.1 fL (80.0-100.0); Mean Platelet Volume 10.5 fL (7.0-11.0); Platelet Count 167 th/mm3 (150-450); Red Blood Count 4.93 mil/mm3 (4.00-5.30); Red Cell Distribution Width 14.4 % (11.6-17.2); White Blood Count 5.6 th/mm3 (4.0-11.0)
[2018-01-28 05:05] LABS: Alanine Aminotransferase 15 U/L (10-53); Albumin 2.8 g/dL (3.4-5.0); Alkaline Phosphatase 87 U/L (45-117); Anion Gap 12 meq/L (5-15); Aspartate Aminotransferase 17 U/L (15-37); Blood Urea Nitrogen 17 mg/dL (7-18); Calcium 8.3 mg/dL (8.5-10.1); Carbon Dioxide 23.1 meq/L (21.0-32.0); Chloride 110 meq/L (98-107); Glomerular Filtration Rate 46 mL/min (>89); Glucose,Random 155 mg/dL (74-106); Magnesium 2.2 mg/dL (1.5-2.5); Potassium 4.6 meq/L (3.5-5.1); Sodium 145 meq/L (136-145)
[2018-01-28] MEDS: ceFAZolin 2 GM Premix Inj 2 GM/100 ML BAG IV.SIG SCH ×2 (08:00→15:04)
[2018-01-28] MEDS: Ascorbic Acid 500 MG Tablet PO SCH (08:06)
[2018-01-28] MEDS: Senna/Docusate Sodium 8.6/50 MG Tablet PO SCH ×4 (08:06→20:44)
[2018-01-28] MEDS: levETIRAcetam 500 MG Tablet PO SCH ×2 (08:06→20:42)
[2018-01-28] MEDS: Famotidine PF Inj 20 MG/2 ML Vial IV.PUSH SCH ×2 (08:06→20:43)
[2018-01-28] MEDS: amLODIPine 5 MG Tablet PO SCH (20:43)
[2018-01-29 09:27] LABS: Bilirubin,Urine Negative (Negative); Clarity,Urine Clear (Clear); Color,Urine Straw (Yellw/Straw); Glucose,Urine (UA) Negative (Negative); Hyaline Casts,Urine 3 /lpf (0-3); Leukocyte Esterase,Urine Negative (Negative); Mucus,Urine Few /lpf (Occasional); Nitrite,Urine Negative (Negative)
[2018-01-29] MEDS: levETIRAcetam 500 MG Tablet PO SCH ×2 (10:25→20:24)
[2018-01-29] MEDS: Ascorbic Acid 500 MG Tablet PO SCH (10:25)
[2018-01-29] MEDS: Senna/Docusate Sodium 8.6/50 MG Tablet PO SCH ×4 (10:26→20:25)
[2018-01-29] MEDS: Famotidine PF Inj 20 MG/2 ML Vial IV.PUSH SCH ×2 (10:26→20:25)
[2018-01-29 10:46] LABS: Calcium 8.6 mg/dL (8.5-10.1); Carbon Dioxide 27.5 meq/L (21.0-32.0); Potassium 4.2 meq/L (3.5-5.1)
[2018-01-29] MEDS: amLODIPine 5 MG Tablet PO SCH (20:24)
[2018-01-30 07:39] LABS: Calcium 8.6 mg/dL (8.5-10.1); Carbon Dioxide 28.6 meq/L (21.0-32.0); Potassium 4.2 meq/L (3.5-5.1)
[2018-01-30] MEDS: Famotidine PF Inj 20 MG/2 ML Vial IV.PUSH SCH (08:45)
[2018-01-30] MEDS: Senna/Docusate Sodium 8.6/50 MG Tablet PO SCH ×2 (08:45→08:47)
[2018-01-30] MEDS: levETIRAcetam 500 MG Tablet PO SCH (08:46)
[2018-01-30] MEDS: Ascorbic Acid 500 MG Tablet PO SCH (08:47)
== END 2018-01-30 16:44 ==
LOC: NEPC 21:25 → NEDA 21:55 → N03 01-24 01:30
PROVIDERS: ADMIT Internal Medicine Critical Care Medicine; ATTEND Internal Medicine Critical Care Medicine